=== PATIENT | male | born 1970 | race Caucasian/White ===

== ENCOUNTER 2017-01-01 13:12 | Emergency (ER) | payer OTHER ==
[~2017-01-01] VITALS: Ht 180.3 cm; Wt 83.2 kg
[~2017-01-01 13:12] MED LIST: CHLO25CA10 PO
[2017-01-01 13:15] VITALS: BP 158/94; PULSE 85; RESP 18; O2SAT 99
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
[2017-01-01] MEDS ORDERED: HYDROmorphone 0.5 mg/0.5 mL iSecure Syringe IVPUSH PRN (13:55)
[2017-01-01] MEDS ORDERED: Ondansetron 2 mg/mL 2 mL Inj IVPUSH PRN (13:55)
[2017-01-01 14:29] LABS: BASOPHILS % (AUTO) 0.6 % (0-3); EOSINOPHILS % (AUTO) 1.7 % (0-5); MONOCYTES % (AUTO) 12.2 % (4-12); Mean Corpuscular Hemoglobin 31.3 pg (27.0-35.0); NEUTROPHILS % (AUTO) 71.6 % (40-74); Platelet Count 172 bil/L (150-400)
[2017-01-01 16:58] VITALS: BP 121/73; PULSE 61; RESP 14; O2SAT 97
--- NOTE | 2017-01-01 17:11 | DRSVH ---
PROCEDURE: CT CHEST, ABDOMEN AND PELVIS WITH CONTRAST ([id number]) INDICATIONS: left rib, back, left flank pain TECHNIQUE: After the administration of intravenous contrast, 5 mm thick sections acquired from the lung apices t o the symphysis. 5 mm thick coronal and sagittal reformats were acquired. Additional 7 mm thick cor onal maximum intensity projection (MIP) reformats acquired through the lungs. Optional 10-minute del ayed imaging may be performed from the kidneys to the bladder. For radiation dose reduction, the fol lowing was used: automated exposure control, adjustment of mA and/or kV according to patient size. COMPARISON: None. FINDINGS: Image quality: Excellent. CHEST: Lungs: The lungs are well aerated. Mild posterior costophrenic angle atelectasis is identified on th e left with a very trace left-sided pleural effusion. There is no pneumothorax. No lung mass or pul monary nodules are evident. Mediastinum: No mediastinal hematomas. Heart size is normal. Atherosclerotic calcifications are se en extensively throughout the left anterior descending coronary artery. No pericardial effusion. Th oracic aorta and pulmonary arteries demonstrate normal size and enhancement. No mediastinal or hilar adenopathy. Esophagus is normal in caliber. No hiatal hernia. Chest wall and bones: There is a nondisplaced posterior left 5th and lateral 6 left rib fracture. No definite additional fractures are identified. No subcutaneous emphysema. No axillary or supraclavi cular adenopathy. Thyroid gland is not enlarged. ABDOMEN: Solid organs: The liver is hypodense when compared to the spleen. The gallbladder is normal in size without surrounding inflammation. No extrahepatic biliary dilatation is evident. The spleen is unre markable. The kidneys are within normal limits. The adrenals and pancreas are unremarkable. No jeanne dence of solid organ contusion or laceration is evident. Peritoneum and bowel: No free fluid or air. Unenhanced bowel loops demonstrate normal wall thicknes s and caliber. The appendix is well-visualized and normal. Mild distal colonic diverticulosis is pr esent without surrounding inflammation. No loculated fluid collections are evident. Nodes and vessels: No retroperitoneal or mesenteric adenopathy. Aorta and inferior vena cava are no rmal in size and enhancement. Bones: The imaged osseous structures are within normal limits. No acute fractures are evident. No s uspicious osseous lesions are evident. Mild to moderate degenerative changes of the lower lumbar fac et joints are present. PELVIS: Genitourinary: Nonspecific prominence involving the wall of the fundal portion of the urinary bladder is evident. The bladder is normally distended. The prostate is not enlarged. Miscellaneous: There may be a small fat containing left inguinal hernia. No free fluid, loculated fl uid collection or free air is evident. No significant lymphadenopathy is identified. Bones: Pelvic ring and hip joints appear intact. No acute fractures are evident. IMPRESSION: 1. Nondisplaced left 5th and 6th rib fractures. No additional fractures are identified within the c hest, abdomen, or pelvis. 2. Mild left posterior costophrenic angle atelectasis and trace effusion is likely related to the ri b fractures. No pneumothorax. 3. No solid organ contusion or laceration is evident within the abdomen or pelvis. No evidence of h emoperitoneum. 4. Nonspecific prominence of the fundal wall of the urinary bladder. Please correlate clinically to exclude cystitis. Additional findings: -Coronary artery atherosclerosis is unusual for the patient's age. -Hepatic steatosis. -Aortic atherosclerosis. -Mild distal colonic diverticulosis. -Small left internal hernia. -Age-appropriate degenerative changes of the imaged spine and pelvis. Dictated by: Ghanshyam Azevedo M.D. on 01/01/2017 at 15:58 Approved by: Ghanshyam Azevedo M.D. on 01/01/2017 at 16:09
[2017-01-01] MEDS ORDERED: OXYC-474 PO (17:45)
[2017-01-01] MEDS ORDERED: NPR500T PO (17:45)
[2017-01-01] MEDS ORDERED: Ketorolac 15 mg/mL Inj IVPUSH ONE (17:45)
[2017-01-01 18:00] VITALS: PULSE 66; RESP 18; O2SAT 95
[2017-01-01 18:03] VITALS: BP 116/60; PULSE 63; RESP 16; O2SAT 95
== END 2017-01-01 18:04 | disposition home or self-care (01) ==
LOC: SED 13:12
DX: S22.42XA Multiple fractures of ribs, left side, initial encounter for closed fracture (principal); I25.10 Atherosclerotic heart disease of native coronary artery without angina pectoris; K57.90 Diverticulosis of intestine, part unspecified, without perforation or abscess without bleeding; K76.0 Fatty (change of) liver, not elsewhere classified; I70.0 Atherosclerosis of aorta; K40.90 Unilateral inguinal hernia, without obstruction or gangrene, not specified as recurrent; V18.0XXA Pedal cycle driver injured in noncollision transport accident in nontraffic accident, initial encounter; Y93.55 Activity, bike riding; Y99.8 Other external cause status; Y92.89 Other specified places as the place of occurrence of the external cause; F17.200 Nicotine dependence, unspecified, uncomplicated; Z88.0 Allergy status to penicillin
CPT/HCPCS: 36415; 71260; 74177; 80053; 85025; 94640; 96374; 96375; 99285; J1170; J1885; J2405; Q9967